=== PATIENT | male | born 1950 | race Caucasian/White ===

== ENCOUNTER 2021-11-24 10:52 | Outpatient (CLI) | payer MEDICARE, BC ==
[2021-11-24 21:15] LABS: SARS-CoV-2 PCR by NAA Not Detected (NotDetected)
== END 2021-11-24 10:53 | disposition home or self-care (01) ==
LOC: CSHLAB 10:52
PROVIDERS: ATTEND Internal Medicine Critical Care Medicine
DX: Z20.822 Contact with and (suspected) exposure to COVID-19 (principal)
CPT/HCPCS: U0003; U0005

== ENCOUNTER 2021-11-29 10:27 | Outpatient (CLI) | payer MEDICARE, BC | END 2021-11-29 10:28 | disposition home or self-care (01) | LOC: CSHCP 10:27 | PROVIDERS: ATTEND Internal Medicine Critical Care Medicine | DX: J44.9 Chronic obstructive pulmonary disease, unspecified (principal) | CPT/HCPCS: 94060; 94726; 94729; 94760 ==

== ENCOUNTER 2022-01-17 09:49 | Outpatient (CLI) | payer MEDICARE, BC | END 2022-01-17 09:50 | disposition home or self-care (01) | LOC: CSHLAB 09:49 | PROVIDERS: ATTEND Internal Medicine Gastroenterology | DX: Z20.822 Contact with and (suspected) exposure to COVID-19 (principal); K21.9 Gastro-esophageal reflux disease without esophagitis | CPT/HCPCS: U0003; U0005 ==

== ENCOUNTER 2022-01-20 10:59 | Day surgery (SDC) | payer MEDICARE, BC ==
[2022-01-18 14:18] VITALS: BMI 29.1
[2022-01-20] MEDS ORDERED: Lidocaine 1% MPF 2 ML VIAL ONE (11:46)
[2022-01-20] MEDS ORDERED: PROPOFOL 20 ML ONE ×2 (13:26)
[2022-01-20] MEDS ORDERED: Glycopyrrolate 0.2 MG/ML 5 ML SYRINGE ONE (13:29)
== END 2022-01-20 14:10 | disposition home or self-care (01) ==
LOC: CSHSDC 10:59
PROVIDERS: ATTEND Internal Medicine Gastroenterology
PROC: 0DD48ZX Extraction of Esophagogastric Junction, Via Natural or Artificial Opening Endoscopic, Diagnostic (ICD-10-PCS; principal; 2022-01-20)
PROC: 0DD68ZX Extraction of Stomach, Via Natural or Artificial Opening Endoscopic, Diagnostic (ICD-10-PCS; 2022-01-20)
DX: K31.7 Polyp of stomach and duodenum (principal); K22.70 Barrett's esophagus without dysplasia; K21.9 Gastro-esophageal reflux disease without esophagitis; K29.70 Gastritis, unspecified, without bleeding; K44.9 Diaphragmatic hernia without obstruction or gangrene; I10 Essential (primary) hypertension; G89.29 Other chronic pain; M54.9 Dorsalgia, unspecified; E78.5 Hyperlipidemia, unspecified; Z86.010 Personal history of colon polyps; Z79.899 Other long term (current) drug therapy; Z88.6 Allergy status to analgesic agent; Z88.8 Allergy status to other drugs, medicaments and biological substances
CPT/HCPCS: 88305; J2704

== ENCOUNTER 2024-04-22 10:10 | Outpatient (CLI) | payer MEDICARE, BC ==
[2024-04-22 11:13] LABS: #Basophils 0.04 10x3/uL (0.0-0.2); #Eosinphils 0.13 10x3/uL (0.0-0.5); #Monocytes 0.72 10x3/uL (0.0-1.1); #Neutrophils 6.32 10x3/uL (1.5-8.4); %Basophils 0.5 % (0.0-2.0); %Eosinophils 1.5 % (0.0-6.0); %Monocytes 8.2 % (0.0-10.0); %Neutrophils 71.5 % (40.0-75.0); Hematocrit 43.1 % (38.8-50.0); Hemoglobin 14.5 g/dL (13.5-17.5); Mean Corpuscular HGB CONC 33.6 g/dL (32.0-36.0); Mean Corpuscular Hemoglobin 32.5 pg (27.0-33.0); Mean Corpuscular Volume 96.6 fL (81.2-95.1); Mean Platelet Volume 9.5 fL (7.4-10.4); Platelet Count 221 10x3/uL (150-450); RBC Distribution Width 12.1 % (11.5-14.5); Red Blood Cell (RBC) Count 4.46 10x6/uL (4.32-5.72); White Blood Cell (WBC) Count 8.8 10x3/uL (3.5-10.5)
[2024-04-22 11:44] LABS: ALT (SGPT) 21 U/L (8-55); AST (SGOT) 25 U/L (5-34); Albumin 3.9 g/dL (3.4-4.8); Alkaline Phosphatase 99 U/L (40-110); Anion Gap 15 mmol/L (10-20); BUN (Urea Nitrogen) 20 mg/dL (8.4-25.7); Bilirubin, Direct 0.3 mg/dL (0.1-0.3); Bilirubin, Total 0.8 mg/dL (0.2-1.2); Calc. Creatinine Clearance 0 mL/min (70-130); Calcium 10.2 mg/dL (7.8-10.44); Carbon Dioxide 25 mmol/L (23-31); Chloride 105 mmol/L (98-107); Estimated GFR 54; Glucose 89 mg/dL (83-110); Potassium 4.5 mmol/L (3.5-5.1); Protein, Total 7.4 g/dL (5.8-8.1); Sodium 140 mmol/L (136-145)
== END 2024-04-22 10:11 | disposition home or self-care (01) ==
LOC: CSHLAB 10:10
PROVIDERS: ATTEND Surgery
DX: Z01.812 Encounter for preprocedural laboratory examination (principal); K80.20 Calculus of gallbladder without cholecystitis without obstruction
CPT/HCPCS: 80048; 80076; 85025

== ENCOUNTER 2024-04-26 05:50 | Day surgery (SDC) | payer MEDICARE, BC ==
[2024-04-22 10:32] VITALS: BMI 26.6
[2024-04-26] MEDS ORDERED: Indocyanine Green 25 MG/10 ML VIAL ONE (06:49)
[2024-04-26] MEDS ORDERED: Bupivacaine/Epinephrine 0.25% 30 ML VIAL ONE (06:58)
[2024-04-26] MEDS ORDERED: Nitroglycerin 2% Ointment 1 INCH/1 GM Packet ONE (07:10)
[2024-04-26] MEDS ORDERED: PROPOFOL 0 ML ONE ×2 (07:10→08:08)
[2024-04-26] MEDS ORDERED: Rocuronium Bromide 10 MG/ML (10ML VIAL) ONE (07:10)
[2024-04-26] MEDS ORDERED: Lidocaine 1% PF 5 ML VIAL ONE (07:10)
[2024-04-26] MEDS ORDERED: fentaNYL 50 mcg/mL 1 mL Vial ONE ×4 (07:10→09:13)
[2024-04-26] MEDS ORDERED: PHENYLEPHRINE-NS 100 MCG/ML 10 ML SYRINGE ONE (07:13)
[2024-04-26] MEDS ORDERED: Albuterol HFA (OR) 200 PUFF INH ONE (07:17)
[2024-04-26] MEDS ORDERED: CEFAZOLIN 2 GM VIAL ONE (07:20)
[2024-04-26] MEDS ORDERED: ceFOXitin 1 GM VIAL ONE (07:24)
[2024-04-26] MEDS ORDERED: Dexamethasone 4 mg/ml Vial ONE (07:42)
[2024-04-26] MEDS ORDERED: Dexmedetomidine 200 MCG/2 ML VIAL ONE (07:47)
[2024-04-26] MEDS ORDERED: ePHEDrine Sulfate 50 MG/10 ML VIAL ONE (07:52)
[2024-04-26] MEDS ORDERED: SUGAMMADEX SODIUM 200 MG/2 ML VIAL ONE (08:06)
[2024-04-26] MEDS ORDERED: Ondansetron PF 4 MG/2 ML Vial ONE ×2 (08:06→09:31)
[2024-04-26] MEDS ORDERED: PROPOFOL 20 ML ONE (08:39)
[2024-04-26] MEDS ORDERED: Hydrocortisone Sod Succ/PF 100 mg/2 ml Vial ONE (08:54)
[2024-04-26] MEDS ORDERED: HYDROcodone/Acetaminophen 5/325 mg Tablet ONE (09:58)
== END 2024-04-26 10:30 | disposition home or self-care (01) ==
LOC: CSHSDC 05:50
PROVIDERS: ATTEND Surgery
PROC: 0FT44ZZ Resection of Gallbladder, Percutaneous Endoscopic Approach (ICD-10-PCS; principal; 2024-04-26)
DX: K80.20 Calculus of gallbladder without cholecystitis without obstruction (principal); I10 Essential (primary) hypertension; K21.9 Gastro-esophageal reflux disease without esophagitis; F32.A Depression, unspecified; J44.9 Chronic obstructive pulmonary disease, unspecified; Z98.890 Other specified postprocedural states; F17.200 Nicotine dependence, unspecified, uncomplicated; Z88.6 Allergy status to analgesic agent
CPT/HCPCS: 88304; C1889; J0694; J1100; J1720; J2405; J2704; J3010

== ENCOUNTER 2024-04-28 10:13 | Emergency (ER) | payer MEDICARE, BC ==
[2024-04-28 10:50] LABS: #Basophils 0.06 10x3/uL (0.0-0.2); #Eosinophils 0.02 10x3/uL (0.0-0.5); #Monocytes 0.99 10x3/uL (0.0-1.1); #Neutrophils 9.55 10x3/uL (1.5-8.4); %Basophils 0.5 % (0.0-2.0); %Eosinophils 0.2 % (0.0-6.0); %Lymphocytes 18.3 % (18.0-47.0); %Monocytes 7.6 % (0.0-10.0); %Neutrophils 72.7 % (40.0-75.0); Hematocrit 43.7 % (38.8-50.0); Hemoglobin 14.3 g/dL (13.5-17.5); Mean Corpuscular HGB CONC 32.7 g/dL (32.0-36.0); Mean Corpuscular Hemoglobin 33.1 pg (27.0-33.0); Mean Corpuscular Volume 101.2 fL (81.2-95.1); Mean Platelet Volume 10.2 fL (7.4-10.4); Platelet Count 269 10x3/uL (150-450); RBC Distribution Width 12.6 % (11.5-14.5); Red Blood Cell (RBC) Count 4.32 10x6/uL (4.32-5.72); White Blood Cell (WBC) Count 13.1 10x3/uL (3.5-10.5)
[2024-04-28] MEDS ORDERED: Calcium Gluc 4.6 MEQ/10 ML (100 MG/ML) ONE (10:56)
[2024-04-28 11:03] LABS: INR-International Normal Ratio 1.2; PTT 26.5 sec (22.0-33.0); Prothrombin Time 12.7 sec (9.5-12.1)
[2024-04-28 11:07] LABS: ALT (SGPT) 21 U/L (8-55); AST (SGOT) 37 U/L (5-34); Alkaline Phosphatase 69 U/L (40-110); Anion Gap 23 mmol/L (10-20); BUN (Urea Nitrogen) 33 mg/dL (8.4-25.7); Bilirubin, Total 1.1 mg/dL (0.2-1.2); Calc. Creatinine Clearance 0 mL/min (70-130); Calcium 9.9 mg/dL (7.8-10.44); Carbon Dioxide 17 mmol/L (23-31); Chloride 106 mmol/L (98-107); Estimated GFR 29; Globulin 3.6 g/dL (2.4-3.5); Glucose 152 mg/dL (83-110); Potassium 4.4 mmol/L (3.5-5.1); Protein, Total 7.6 g/dL (5.8-8.1); Sodium 142 mmol/L (136-145)
[2024-04-28 11:10] LABS: Troponin I 0.022 ng/mL (< 0.028)
[2024-04-28] MEDS ORDERED: Pantoprazole 40 MG VIAL ONE (12:04)
[2024-04-28] MEDS ORDERED: Piperacillin/Tazobactam 4.5 GM VIAL ONE (12:04)
[2024-04-28] MEDS ORDERED: Iopamidol 370 76% 100 ML VIAL ONE (15:29)
== END 2024-04-28 14:17 | disposition short-term general hospital (02) ==
LOC: CSHERS 10:13
DX: K62.5 Hemorrhage of anus and rectum (principal); N17.9 Acute kidney failure, unspecified; K91.840 Postprocedural hemorrhage of a digestive system organ or structure following a digestive system procedure; I10 Essential (primary) hypertension; J44.9 Chronic obstructive pulmonary disease, unspecified; F17.210 Nicotine dependence, cigarettes, uncomplicated
CPT/HCPCS: 36415; 36430; 71045; 74177; 80053; 83605; 84484; 85025; 85610; 85730; 86850; 86900; 86901; 87040; 93005; J0612; J2470; J2543; P9016; P9048; P9059; Q9967

== ENCOUNTER 2024-07-09 11:42 | Outpatient (CLI) | payer MEDICARE, BC | END 2024-07-09 11:43 | disposition home or self-care (01) | LOC: CSHULT 11:42 | PROVIDERS: ATTEND Otolaryngology Plastic Surgery within the Head & Neck | DX: E07.89 Other specified disorders of thyroid (principal) | CPT/HCPCS: 76536 ==